=== PATIENT | male | born 1955 | race Caucasian/White ===

== ENCOUNTER → 2016-11-21 | Day surgery (SDC) | payer OTHER ==
[~2016-11-21] MED LIST: LACTATED RINGER'S 1000 ML INJ 1,000 ML ONE; PROPOFOL 200 MG/20 ML AMP IV ONE
--- NOTE | 2016-11-21 12:48 | GIPROC ---
[facility] [address] [place], [address] COLONOSCOPY PROCEDURE REPORT EXAM DATE: 11/21/2016 PATIENT NAME: Oziel Fletcher MR #: [id number] BIRTHDATE: 1955 ENDOSCOPIST: Orlando Blackmon MD ORDER #: [id number] VEGETABLE FARMER: Clari Cohen RN STATUS: outpatient INDICATIONS: The patient is a 61 yr old male here for a colonoscopy due to high risk patient with personal history of colonic polyps and patient had colonoscopy in 2008 with multiple polyps, he was told to come back in 3 months patient did not come back till [address] jeffrey, but he came back for colonoscopy now PROCEDURE PERFORMED: Colonoscopy with ablation Colonoscopy with biopsy Colonoscopy with polypectomy MEDICATIONS: None and Per Anesthesia. PREP QUALITY: fair ESTIMATED BLOOD LOSS: None CONSENT: The patient understands the risks and benefits of the procedure and understands that these risks include, but are not limited to: sedation, allergic reaction, infection, perforation and/or bleeding. Alternative means of evaluation and treatment include, among others: physical exam, x-rays, and/or surgical intervention. The patient elects to proceed with this endoscopic procedure. medical equipment was checked for proper function. Hand hygiene and appropriate measures for infection prevention was taken. After the risks, benefits and alternatives of the procedure were thoroughly explained, Informed consent was verified, confirmed and timeout was successfully executed by the treatment team. A digital exam was performed and revealed no abnormalities of the rectum The EC-[id number] ([id number]) endoscope was introduced through the anus and advanced to the cecum, which was identified by both the appendix and ileocecal valve. The instrument was then slowly withdrawn as the colon was fully examined. COLON FINDINGS: Flat large polyp at the ileo-cecal valve, not possible to do polypectomy because of size and location, Bx done. Multiple large polyps 1-2 cm in the sigmoid and rectum removed by snare. Multiple small polyps ablated with heat in the rectum and sigmoid total polyps 11. Mild diverticulosis was noted throughout the entire examined colon. Retroflexed views revealed no abnormalities The scope was then completely withdrawn from the patient and the procedure terminated. ADVERSE EVENTS: There were no complications. IMPRESSIONS: 1. Flat large polyp at the ileo-cecal valve, not possible to do polypectomy because of size and location, Bx done 2. Multiple large polyps 1-2 cm in the sigmoid and rectum removed by snare 3. Multiple small polyps ablated with heat in the rectum and sigmoid total polyps 11 4. Mild diverticulosis was noted throughout the entire examined colon 5. Retroflexed views revealed no abnormalities 6. Was performed 7. Revealed no abnormalities of the rectum RECOMMENDATIONS: 1. Await biopsy results. Biopsy results will not be ready for 7-10 days. If you don't hear from us in two weeks, call our office for results. 2. Yearly hemoccult 3. High fiber diet 4. Surgical consult [facility] general surgery for resection of the lesion in the ICV/cecum RECALL: Return 1 year Colonoscopy Orlando Blackmon MD eSigned: Orlando Blackmon MD 11/21/2016 12:47 PM cc: PATIENT NAME: Oziel Fletcher MR#: [id number]
== END | disposition home or self-care (01) ==
LOC: ESDC 10:07
PROVIDERS: ATTEND Hospitalist
DX: Z12.11 Encounter for screening for malignant neoplasm of colon (principal); Z86.010 Personal history of colon polyps; D12.5 Benign neoplasm of sigmoid colon; K62.1 Rectal polyp; D12.0 Benign neoplasm of cecum; K57.90 Diverticulosis of intestine, part unspecified, without perforation or abscess without bleeding
CPT/HCPCS: 00810; 45380; 45385; 45388; 88305; J3010; J7120